=== PATIENT | male | born 1990 | race Caucasian/White ===

== ENCOUNTER 2017-08-04 12:20 | Emergency (ER) | payer OTHER ==
[2017-08-04] MEDS ORDERED: Ketorolac Tromethamine 30 MG/ML VIAL ONE (13:47)
[2017-08-04] MEDS ORDERED: Ondansetron HCl/PF 4 MG/2 ML Vial ONE (13:47)
== END 2017-08-04 13:59 | disposition left against medical advice (07) ==
LOC: SCSER 12:20
DX: R10.11 Right upper quadrant pain (principal); R10.31 Right lower quadrant pain; Z87.891 Personal history of nicotine dependence
CPT/HCPCS: J1885; J2405

== ENCOUNTER 2018-10-31 21:05 | Observation (INO) | payer OTHER, SELFPAY ==
[2018-10-31 21:57] LABS: #Basophils 0.1 thou/uL (0.0-0.2); #Eosinphils 0.2 thou/uL (0.0-0.7); #Lymphocytes 2.8 thou/uL (1.20-3.40); #Monocytes 1.5 thou/uL (0.11-0.59); #Neutrophils 6.7 thou/uL (1.40-6.50); %Basophils 0.8 % (0.0-1.0); %Eosinophils 1.7 % (0.0-10.0); %Lymphocytes 24.4 % (21.0-51.0); %Monocytes 13.5 % (0.0-10.0); %Neutrophils 59.5 % (42.0-75.0); Mean Corpuscular HGB CONC 34.3 g/dL (32.0-36.0); Mean Corpuscular Hemoglobin 30.5 pg (27.0-31.0); Mean Platelet Volume 6.5 fL (7.4-10.4); Platelet Count 369 thou/uL (130-400); RBC Distribution Width 12.6 % (11.5-14.5); Red Blood Cell (RBC) Count 4.92 mill/uL (4.70-6.10); White Blood Cell (WBC) Count 11.3 thou/uL (4.8-10.8)
[2018-10-31 22:18] LABS: ALT (SGPT) 16 U/L (8-55); AST (SGOT) 20 U/L (5-34); Albumin 4.8 g/dL (3.5-5.0); Alkaline Phosphatase 80 U/L (40-150); Anion Gap 12 mmol/L (10-20); BUN (Urea Nitrogen) 26 mg/dL (8.9-20.6); Bilirubin, Total 0.7 mg/dL (0.2-1.2); CK (CPK) 281 U/L (30-200); Calc. Creatinine Clearance 0 mL/min (70-130); Calcium 10.1 mg/dL (7.8-10.44); Carbon Dioxide 29 mmol/L (22-29); Chloride 96 mmol/L (98-107); Estimated GFR-MDRD 51; Globulin 3.1 g/dL (2.4-3.5); Glucose 71 mg/dL (70-105); Potassium 3.3 mmol/L (3.5-5.1); Protein, Total 7.9 g/dL (6.0-8.3); Sodium 134 mmol/L (136-145)
[2018-10-31 22:24] LABS: Phosphorus 4.2 mg/dL (2.3-4.7)
[2018-10-31] MEDS ORDERED: Magnesium 2 GM/50 ML BAG (IN WATER) ONE (22:54)
[2018-10-31 22:56] LABS: Troponin I Less than 0.010 ng/mL (< 0.028)
[2018-11-01] LABS: Bilirubin Negative (Negative); Blood, Urine Negative (Negative); Clarity CLEAR (Clear); Glucose, Urine (Dipstick) Negative (Negative); Leukocyte Negative (Negative); Nitrite Negative (Negative); Protein, Urine (Dipstick) Negative (Neg-Trace); Specific Gravity, Urine 1.011 (1.002-1.036); Urobilinogen 0.2 mg/dL (0.2-1.0)
[2018-11-01] MEDS ORDERED: Acetaminophen 325 MG TAB PO PRN (01:02)
[2018-11-01 01:06] VITALS: BMI 27.3
[2018-11-01 01:58] LABS: Troponin I Less than 0.010 ng/mL (< 0.028)
[2018-11-01 05:08] LABS: #Basophils 0.1 thou/uL (0.0-0.2); #Eosinphils 0.3 thou/uL (0.0-0.7); #Lymphocytes 3.5 thou/uL (1.20-3.40); %Basophils 0.8 % (0.0-1.0); %Eosinophils 2.9 % (0.0-10.0); %Lymphocytes 39.9 % (21.0-51.0); %Monocytes 11.5 % (0.0-10.0); %Neutrophils 44.9 % (42.0-75.0); Hemoglobin 13.4 g/dL (14.0-18.0); Mean Corpuscular HGB CONC 34.9 g/dL (32.0-36.0); Mean Corpuscular Hemoglobin 31.2 pg (27.0-31.0); Mean Corpuscular Volume 89.6 fL (78.0-98.0); Mean Platelet Volume 6.6 fL (7.4-10.4); Platelet Count 286 thou/uL (130-400); RBC Distribution Width 12.6 % (11.5-14.5); Red Blood Cell (RBC) Count 4.28 mill/uL (4.70-6.10); White Blood Cell (WBC) Count 8.8 thou/uL (4.8-10.8)
[2018-11-01 05:18] LABS: Anion Gap 12 mmol/L (10-20); BUN (Urea Nitrogen) 16 mg/dL (8.9-20.6); Calc. Creatinine Clearance 136 mL/min (70-130); Calcium 9.2 mg/dL (7.8-10.44); Carbon Dioxide 27 mmol/L (22-29); Chloride 102 mmol/L (98-107); Estimated GFR-MDRD Greater than 90; Glucose 83 mg/dL (70-105); Potassium 3.6 mmol/L (3.5-5.1); Sodium 137 mmol/L (136-145)
[2018-11-01 05:25] LABS: Troponin I Less than 0.010 ng/mL (< 0.028)
[2018-11-01] MEDS ORDERED: Nicotine 14 MG PATCH TD SCH (13:00)
[2018-11-01 13:10] LABS: Medtox Reader # READER 1
[2018-11-01 13:11] LABS: Amphetamine Detected (NotDetected); Barbiturates Screen Not Detected (NotDetected); Benzodiazepine Screen Not Detected (NotDetected); Cocaine Metabolite Screen Not Detected (NotDetected); Medtox Control Line Valid? VALID (VALID); Methadone Not Detected (NotDetected); Methamphetamine Detected (NotDetected); Opiate Screen Detected (NotDetected); Oxycodone Screen Not Detected (NotDetected); Phencyclidine (PCP) Not Detected (NotDetected); THC/Cannabinoid Screen Detected (NotDetected); Tricyclic Screen Not Detected (NotDetected)
[2018-11-01 14:20] LABS: Acetaminophen Less than 6.0 mcg/mL (10.0-30.0)
[2018-11-01 15:53] VITALS: BP 120/58; TEMP 98.4
--- NOTE | 2018-11-01 18:27 | HP ---
CHIEF COMPLAINT: Presyncope. HISTORY OF PRESENT ILLNESS: Mr. Woodson is a 28-year-old man, who had a presyncopal episode yesterday, witnessed by his . He was walking down the [place] in his house when he suddenly became lightheaded. His states he bumped into the wall and then nearly fell when she was able to catch his fall and lower him to the ground. She states he did not have full loss of consciousness, but was disoriented for a brief moment. He states he was working in the heat and had not drank enough water and feels this occurred due to dehydration. 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 He denies any preceding chest pain or shortness of breath, but states he recalls having severe cramping in his legs and in both hands. He states this has happened once before. He denies any recent alcohol use or drug use. Denies being unwell in recent days. Denies any medical problems, but reports being told by his mother that he had a murmur when he was a child. He does not follow up with any primary care physician or specialist. In the emergency department, he received magnesium replacement and 2 L of IV fluids. He states he has been feeling significantly better and feels that he is back at his normal baseline. He did undergo laboratory studies that had been notable for mild leukocytosis with a white count of 11.3. He was hypokalemic with a potassium of 3.3, and his BUN and creatinine were elevated at 26 and 1.61 respectively with a GFR 51. CK elevated at 281. Troponins were trended and all were negative. Liver function studies were unremarkable. Urinalysis was done, which was positive for trace ketones. REVIEW OF SYSTEMS: He denies having any recent issues with his appetite. No nausea or vomiting. No changes with his weight. Denies having any chest pain, palpitations, or shortness of breath. He is a smoker, but denies any chronic cough and denies any hemoptysis. He smokes one pack of cigarettes per day. Denies having any headaches or dizziness. No further muscle cramping. Denies any abdominal pain. He denies having any recent fevers or chills, but does report chronic issues with occasional sweats. He states he sweats profusely and this has been a longstanding problem. It typically is worse when he is active, nervous, or at night. Denies any weakness. All other review of systems are negative. ALLERGIES: NO KNOWN DRUG ALLERGIES. CURRENT MEDICATIONS: Acetaminophen. PAST MEDICAL HISTORY: 1. Heart murmur as a child. 2. Seizure. PAST SURGICAL HISTORY: Left ACL surgery. SOCIAL HISTORY: The patient reports drinking alcohol socially, but has not had any alcohol in the last several days. Denies any illicit drug use. Reports smoking one pack of cigarettes per day. PHYSICAL EXAMINATION: GENERAL: The patient appears well developed, thin, in no acute distress, resting comfortably. VITAL SIGNS: Temperature 98, pulse 70, respirations 15, O2 saturation 97% on room air, blood pressure 107/59. HEENT: Normocephalic, atraumatic. Pupils are equal, round, and reactive to light. Sclerae without icterus. Oropharynx is clear. NECK: Supple without lymphadenopathy. LUNGS: Clear to auscultation bilaterally without any wheezes, rales, or rhonchi. CARDIAC: Regular rate and rhythm. ABDOMEN: Soft, nontender, nondistended. Normoactive bowel sounds present. No guarding or rigidity. No renal angle tenderness. EXTREMITIES: Without lower leg edema or swelling. No calf tenderness. SKIN: Without rash or jaundice. NEUROLOGIC: Alert and oriented x3. No neuro deficits. IMPRESSION AND PLAN: Mr. Woodson is a 28-year-old man, who is being admitted for management of the following. 1. Presyncope. The patient states he was working in the hot out most of the day and the day prior. He feels this was due to dehydration. He was noted to have an acute kidney injury on admission and he can have had a vasovagal due to hypovolemia. Given the history of a heart murmur, we will check orthostatic blood pressure, and we will continue to monitor. We will check urine drug screen. 2. Acute kidney injury. The patient has received fluids and renal function much improved. GFR now greater than 90 compared to 51 yesterday. 3. Gastrointestinal prophylaxis. 4. Deep venous thrombosis prophylaxis. 5. Full code status. His surrogate decision maker is his , Mary Lou Woodson. 6. The patient's case was discussed with Dr. Cagle, who agrees with plan of care as described above. Job ID: [id number]
== END 2018-11-01 17:45 | disposition home or self-care (01) ==
LOC: ERS 21:05 → 2SW 11-01 00:37
PROVIDERS: ADMIT Internal Medicine; ATTEND Internal Medicine
DX: R55 Syncope and collapse (principal); N17.9 Acute kidney failure, unspecified; F17.210 Nicotine dependence, cigarettes, uncomplicated
CPT/HCPCS: 36415; 36416; 80048; 80053; 80306; 80307; 81003; 82550; 83735; 84100; 84484; 85025; 93005; 93306; 96361; 96365; G0378; J3475

== ENCOUNTER 2019-01-11 00:04 | Inpatient (IN) | payer SELFPAY ==
[2019-01-11 00:40] LABS: Hemoglobin 16.8 g/dL (14.0-18.0); Mean Corpuscular HGB CONC 36.3 g/dL (32.0-36.0); Mean Corpuscular Hemoglobin 31.5 pg (27.0-31.0); Mean Corpuscular Volume 86.9 fL (78.0-98.0); Mean Platelet Volume 6.7 fL (7.4-10.4); Platelet Count 461 thou/uL (130-400); RBC Distribution Width 12.5 % (11.5-14.5); Red Blood Cell (RBC) Count 5.32 mill/uL (4.70-6.10); White Blood Cell (WBC) Count 20.2 thou/uL (4.8-10.8)
[2019-01-11 00:57] LABS: ALT (SGPT) 23 U/L (8-55); AST (SGOT) 41 U/L (5-34); Alkaline Phosphatase 89 U/L (40-150); Anion Gap 24 mmol/L (10-20); BUN (Urea Nitrogen) 41 mg/dL (8.9-20.6); Bilirubin, Total 0.7 mg/dL (0.2-1.2); CK (CPK) 1706 U/L (30-200); Calc. Creatinine Clearance 0 mL/min (70-130); Calcium 11.5 mg/dL (7.8-10.44); Carbon Dioxide 19 mmol/L (22-29); Chloride 84 mmol/L (98-107); Estimated GFR-MDRD 22; Globulin 4.1 g/dL (2.4-3.5); Glucose 114 mg/dL (70-105); Potassium 3.9 mmol/L (3.5-5.1); Protein, Total 10.1 g/dL (6.0-8.3); Sodium 123 mmol/L (136-145)
[2019-01-11 00:58] LABS: Lymphocytes 8 % (21-51); MDiff Complete? YES; Monocytes 4 % (0-10); Neutrophil 88 % (42-75); Platelet Morphology Comment Appears Increased; RBC Morphology Normal
[2019-01-11] MEDS ORDERED: Ondansetron PF 4 MG/2 ML Vial ONE (01:49)
[2019-01-11] MEDS ORDERED: Senokot S 8.6-50 MG TAB PO PRN (03:13)
[2019-01-11] MEDS ORDERED: Bisacodyl 5 MG TAB PO PRN (03:13)
[2019-01-11] MEDS: Sodium Chloride 0.9% 1,000 ML IV SCH ×3 (05:05→19:20)
[2019-01-11 05:46] LABS: Bilirubin Negative (Negative); Blood, Urine 1+ (Negative); Clarity Turbid (Clear); Glucose, Urine (Dipstick) Normal (Negative); Leukocyte Negative Leu/uL (Negative); Mucous/LPF Rare LPF (<2+); Nitrite Negative (Negative); Protein, Urine (Dipstick) 10 mg/dL (Neg-Trace); RBC/HPF 0-3 HPF (0-3); Squamous Epithelial 0-3 HPF (0-3); Urobilinogen Normal mg/dL (Less than 2); Yeast-Budding 1+ HPF (None Seen)
[2019-01-11 05:47] LABS: Bacteria/HPF 1+ HPF (None Seen)
[2019-01-11 05:55] LABS: Calcium Oxalate Crystals 3+ HPF (None Seen)
--- NOTE | 2019-01-11 06:06 | HP ---
CHIEF COMPLAINT: Generalized body aches and pain. HISTORY OF PRESENT ILLNESS: The patient is a 28-year-old male, who stated that he works outside in the sun and stated that for the past couple of days, came home, felt very ill, so he started drinking lots and lots of water. At this time, he had significant amount of nausea and vomiting. He stated that he felt cramping all over. He could not keep any fluids down. He denies any diarrhea or any significant abdominal pain; however, felt that he has cramping all over. The patient states that he feels that he is dehydrated and that is why he came into the ER for further evaluation. He felt warm, however, notes no documented fevers. PAST MEDICAL HISTORY: The patient's past medical history is of the following; 1. He has had a heart murmur as a child. 2. He has a history of seizure. PAST SURGICAL HISTORY: He has had a left ACL surgery. SOCIAL HISTORY: He denies drinking, any alcohol, any drug use, or any smoking history. He is a full code and lives alone. REVIEW OF SYSTEMS: All negative except for the ones mentioned above in the HPI. ALLERGIES: HE HAS NO KNOWN DRUG ALLERGIES. MEDICATIONS: He states that he has been taking few ibuprofen here and there. PHYSICAL EXAMINATION: VITAL SIGNS: As of the following; temperature of 97.8, blood pressure 135/92, pulse 97, respiratory rate 19, 99% on room air. GENERAL: He is awake, alert, and oriented x3. Does not appear in distress. HEENT: Normocephalic, atraumatic. No lymphadenopathy noted. Pupils are equal and reactive to light. CV: S1 and S2 present. No murmurs heard on my auscultation. LUNGS: Clear to auscultation. No rhonchi or wheezes noted. ABDOMEN: Bowel sounds are present x2. The patient has pain upon palpation to all 4 quadrants. EXTREMITIES: No edema. Pedal pulses are present x2. SKIN: He has some tattooing all over. NEUROVASCULAR: No focal deficits noted. LABORATORY DATA: Laboratory results, WBCs of 20.2, hemoglobin of 16.8, hematocrit of 46.2, and platelets of 461. Chemistry, sodium of 123, potassium of 3.9, BUN of 41, creatinine of 3.38. His calcium is 11.5. CK is 1706. AST is 41. Lipase is 14. CT of abdomen and pelvis has been ordered. The results are pending. ASSESSMENT AND PLAN: The patient is a 28-year-old male, who presents to the hospital with generalized body aches and pains and also abdominal cramping. 1. Acute kidney injury. I will start the patient on some hydration. Also I will order a CT of abdomen and pelvis, which the results are pending to rule out any obstruction. The patient appears to be clinically very severely dehydrated. We will continue to monitor. 2. He has hyponatremia, most likely secondary to dehydration. He also has elevation of calcium. We will continue IV hydration and continue to monitor. 3. Leukocytosis. I believe this is reactive. He does not have any diarrhea and only had nausea and vomiting. We will continue to monitor without any antibiotics. Of note, his toxicology back in October was positive for methamphetamines and marijuana; however, the patient states that he has not taken marijuana for the past 3 weeks. I will check a UDS on this patient. 4. Deep venous thrombosis prophylaxis. We will put the patient on some SCDs. Job ID: [id number]
[2019-01-11 06:09] LABS: #Lymphocytes 3.1 thou/uL (1.20-3.40); #Monocytes 1.1 thou/uL (0.11-0.59); #Neutrophils 10.3 thou/uL (1.40-6.50); %Eosinophils 0.2 % (0.0-10.0); %Lymphocytes 21.1 % (21.0-51.0); %Monocytes 7.7 % (0.0-10.0); %Neutrophils 70.9 % (42.0-75.0); Hemoglobin 14.6 g/dL (14.0-18.0); Mean Corpuscular HGB CONC 35.2 g/dL (32.0-36.0); Mean Corpuscular Hemoglobin 31.6 pg (27.0-31.0); Mean Corpuscular Volume 89.8 fL (78.0-98.0); Mean Platelet Volume 6.5 fL (7.4-10.4); Platelet Count 370 thou/uL (130-400); RBC Distribution Width 12.4 % (11.5-14.5); Red Blood Cell (RBC) Count 4.61 mill/uL (4.70-6.10); White Blood Cell (WBC) Count 14.5 thou/uL (4.8-10.8)
[2019-01-11 06:26] LABS: Anion Gap 15 mmol/L (10-20); BUN (Urea Nitrogen) 35 mg/dL (8.9-20.6); Calc. Creatinine Clearance 0 mL/min (70-130); Calcium 9.7 mg/dL (7.8-10.44); Carbon Dioxide 25 mmol/L (22-29); Chloride 93 mmol/L (98-107); Estimated GFR-MDRD 32; Glucose 105 mg/dL (70-105); Potassium 3.8 mmol/L (3.5-5.1); Sodium 129 mmol/L (136-145)
--- NOTE | 2019-01-11 07:35 | CT ---
PRELIMINARY REPORT/[facility]/EMERGENCY AFTER HOURS PROCEDURE: EXAM: CT Abdomen and Pelvis Without Contrast EXAM DATE/TIME: 01/11/2019 2:14 AM CLINICAL HISTORY: 28 years old, male; Abdominal pain; Generalized; Patient HX: 28 y/o m presents to ED C/O x 2 days of abd cramping and vomiting. PT reports approx 5 episodes of emesis. He states he is concerned he is dehydrated TECHNIQUE: Imaging protocol: Axial computed tomography images of the abdomen and pelvis without contrast. COMPARISON: No relevant prior studies available. FINDINGS: Lungs: The visualized portions of the lung bases are normal. Liver: The liver is within normal limits for this noncontrast study. Gallbladder and bile ducts: The gallbladder is normal. There is no evidence of biliary ductal dilatio n. Pancreas: The pancreas appears normal. No ductal dilatation. Spleen: The spleen is normal. Adrenals: The adrenal glands are normal. Kidneys and ureters: The kidneys appear normal. No hydronephrosis. Stomach and bowel: The stomach is normal. The colon is normal. Appendix: A normal appendix is identified. Intraperitoneal space: Normal. No free air. No significant fluid collection. Vasculature: Normal. No abdominal aortic aneurysm. Lymph nodes: Normal. No enlarged lymph nodes. Bladder: The bladder is normal. Reproductive: The prostate gland and seminal vesicles are normal. Bones/joints: No acute fracture. No dislocation. Soft tissues: Unremarkable. IMPRESSION: No acute abdominal pelvic pathology. Thank you for allowing us to participate in the care of your patient. Dictated and Authenticated by: Faustino Riley MD 01/11/2019 3:40 AM Central Time ([place] & [place]) FINAL REPORT EMERGENCY AFTER HOURS CT ABDOMEN AND PELVIS WITHOUT CONTRAST: FINDINGS/IMPRESSION: I agree with the preliminary report given by Alberto. Transcribed Date/Time: 01/11/2019 7:47 AM
[2019-01-11] MEDS: Famotidine/PF 20 mg/2ml Vial SLOW IVP SCH (09:28)
[2019-01-11 09:43] LABS: Medtox Reader # READER 1
[2019-01-11 09:44] LABS: Amphetamine Not Detected (NotDetected); Barbiturates Screen Not Detected (NotDetected); Benzodiazepine Screen Not Detected (NotDetected); Cocaine Metabolite Screen Not Detected (NotDetected); Medtox Control Line Valid? VALID (VALID); Methadone Not Detected (NotDetected); Methamphetamine Not Detected (NotDetected); Opiate Screen Not Detected (NotDetected); Oxycodone Screen Not Detected (NotDetected); Phencyclidine (PCP) Not Detected (NotDetected); THC/Cannabinoid Screen Detected (NotDetected); Tricyclic Screen Not Detected (NotDetected)
[2019-01-11] MEDS: Acetaminophen 325 MG TAB PO PRN ×2 (09:54→20:00)
[2019-01-11 11:27] VITALS: BMI 27.3
[2019-01-11 13:20] LABS: Anion Gap 13 mmol/L (10-20); BUN (Urea Nitrogen) 29 mg/dL (8.9-20.6); Calc. Creatinine Clearance 82 mL/min (70-130); Carbon Dioxide 28 mmol/L (22-29); Chloride 94 mmol/L (98-107); Estimated GFR-MDRD 54; Glucose 99 mg/dL (70-105); Potassium 4.6 mmol/L (3.5-5.1); Sodium 130 mmol/L (136-145)
[2019-01-12] MEDS: Sodium Chloride 0.9% 1,000 ML IV SCH ×2 (00:06→05:11)
[2019-01-12] MEDS: Famotidine/PF 20 mg/2ml Vial SLOW IVP SCH (08:56)
[2019-01-12 11:12] LABS: #Basophils 0.1 thou/uL (0.0-0.2); #Eosinphils 0.2 thou/uL (0.0-0.7); #Lymphocytes 2.8 thou/uL (1.20-3.40); #Monocytes 0.8 thou/uL (0.11-0.59); #Neutrophils 4.9 thou/uL (1.40-6.50); %Basophils 0.6 % (0.0-1.0); %Eosinophils 1.8 % (0.0-10.0); %Lymphocytes 31.7 % (21.0-51.0); %Monocytes 9.2 % (0.0-10.0); %Neutrophils 56.7 % (42.0-75.0); Hemoglobin 13.9 g/dL (14.0-18.0); Mean Corpuscular HGB CONC 34.8 g/dL (32.0-36.0); Mean Corpuscular Hemoglobin 31.1 pg (27.0-31.0); Mean Corpuscular Volume 89.5 fL (78.0-98.0); Mean Platelet Volume 6.8 fL (7.4-10.4); Platelet Count 343 thou/uL (130-400); RBC Distribution Width 12.2 % (11.5-14.5); Red Blood Cell (RBC) Count 4.47 mill/uL (4.70-6.10); White Blood Cell (WBC) Count 8.7 thou/uL (4.8-10.8)
[2019-01-12 11:41] LABS: ALT (SGPT) 24 U/L (8-55); AST (SGOT) 44 U/L (5-34); Albumin 4.4 g/dL (3.5-5.0); Alkaline Phosphatase 63 U/L (40-150); Anion Gap 12 mmol/L (10-20); BUN (Urea Nitrogen) 14 mg/dL (8.9-20.6); Bilirubin, Total 0.8 mg/dL (0.2-1.2); CK (CPK) 1318 U/L (30-200); Calc. Creatinine Clearance 159 mL/min (70-130); Calcium 9.5 mg/dL (7.8-10.44); Carbon Dioxide 25 mmol/L (22-29); Chloride 103 mmol/L (98-107); Estimated GFR-MDRD Greater than 90; Globulin 2.9 g/dL (2.4-3.5); Glucose 95 mg/dL (70-105); Potassium 4.5 mmol/L (3.5-5.1); Protein, Total 7.3 g/dL (6.0-8.3); Sodium 135 mmol/L (136-145)
[2019-01-12 12:50] VITALS: BP 132/52; TEMP 98.2
--- NOTE | 2019-01-12 15:31 | DIS ---
DATE OF ADMISSION: 01/11/2019 DATE OF DISCHARGE: 01/12/2019 PRIMARY CARE PROVIDER: None. DISCHARGE DIAGNOSES: 1. Acute kidney injury. 2. Rhabdomyolysis. 3. Hyponatremia. 4. Dehydration. 5. Hypercalcemia. CONDITION OF PATIENT ON THE DAY OF DISCHARGE: Stable. I assessed Mr. Woodson on the day of discharge. He denies any chest pain or shortness of breath. Vital signs are stable. S1 and S2 are heard, regular. Lungs are clear to auscultation bilaterally. DISCHARGE MEDICATIONS: None. HOSPITAL COURSE: Mr. Woodson is a pleasant 28-year-old gentleman, who was admitted to [facility] on January 11, 2019, for acute kidney injury and rhabdomyolysis. He was also hyponatremic. He also had elevated calcium level. He was treated with intravenous fluids. He improved clinically. On the day of discharge, he has sodium 135, potassium 4.5, creatinine 0.80, creatine kinase 1318, white count 8700, hemoglobin 13.9, and platelet count 343,000 Many thanks for allowing me to participate in your patient's care. Please feel free to contact me with any questions or concerns. FOLLOWUP APPOINTMENTS: The patient has been advised to follow up with primary care provider in 3 days' time and have his basic metabolic panel checked. DISCHARGE DESTINATION: Home. TIME SPENT: Total amount of time spent coordinating this discharge: 33 minutes. Job ID: [id number]
== END 2019-01-12 14:56 | disposition home or self-care (01) | DRG 683 ==
LOC: ERS 00:04 → ERHOLD 02:50 → SURG A 07:49
PROVIDERS: ADMIT Internal Medicine; ATTEND Internal Medicine
DX: N17.9 Acute kidney failure, unspecified (principal); E87.1 Hypo-osmolality and hyponatremia; M62.82 Rhabdomyolysis; E86.0 Dehydration; E83.52 Hypercalcemia
CPT/HCPCS: 36415; 74176; 80053; 80306; 81003; 81015; 82550; 83690; 85025; 96361; 96374; J2405; S0028

== ENCOUNTER 2019-02-18 23:35 | Inpatient (IN) | payer SELFPAY ==
[2019-02-18] MEDS ORDERED: Ondansetron PF 4 MG/2 ML Vial ONE (23:52)
[2019-02-19 00:01] LABS: #Basophils 0.1 thou/uL (0.0-0.2); #Lymphocytes 2.3 thou/uL (1.20-3.40); #Monocytes 0.8 thou/uL (0.11-0.59); #Neutrophils 16.2 thou/uL (1.40-6.50); %Basophils 0.4 % (0.0-1.0); %Eosinophils 0.1 % (0.0-10.0); %Lymphocytes 11.8 % (21.0-51.0); %Neutrophils 83.8 % (42.0-75.0); Hemoglobin 18.2 g/dL (14.0-18.0); Mean Corpuscular HGB CONC 35.6 g/dL (32.0-36.0); Mean Corpuscular Hemoglobin 31.2 pg (27.0-31.0); Mean Corpuscular Volume 87.8 fL (78.0-98.0); Mean Platelet Volume 6.8 fL (7.4-10.4); Platelet Count 512 thou/uL (130-400); RBC Distribution Width 12.8 % (11.5-14.5); Red Blood Cell (RBC) Count 5.82 mill/uL (4.70-6.10); White Blood Cell (WBC) Count 19.3 thou/uL (4.8-10.8)
[2019-02-19 00:24] LABS: ALT (SGPT) 19 U/L (8-55); AST (SGOT) 26 U/L (5-34); Alkaline Phosphatase 100 U/L (40-150); Anion Gap 30 mmol/L (10-20); BUN (Urea Nitrogen) 34 mg/dL (8.9-20.6); Bilirubin, Total 0.6 mg/dL (0.2-1.2); CK (CPK) 423 U/L (30-200); Calc. Creatinine Clearance 0 mL/min (70-130); Carbon Dioxide 16 mmol/L (22-29); Chloride 86 mmol/L (98-107); Estimated GFR-MDRD 17; Glucose 125 mg/dL (70-105); Lipase 7 U/L (8-78); Potassium 4.5 mmol/L (3.5-5.1); Protein, Total 10.9 g/dL (6.0-8.3); Sodium 127 mmol/L (136-145)
[2019-02-19 00:26] LABS: Albumin Greater than 6.2 g/dL (3.5-5.0); Calcium 12.6 mg/dL (7.8-10.44)
[2019-02-19] MEDS ORDERED: Morphine 4 MG/ML VIAL ONE (00:52)
[2019-02-19 06:38] VITALS: BMI 27.6
[2019-02-19] MEDS ORDERED: Ondansetron PF 4 MG/2 ML Vial IVP PRN ×2 (06:41→09:21)
[2019-02-19] MEDS ORDERED: Sodium Chloride 0.9% 1,000 ML IV SCH ×2 (06:41→09:30)
[2019-02-19] MEDS ORDERED: Ondansetron ODT 4 MG TAB SL PRN (06:41)
[2019-02-19] MEDS ORDERED: traMADol HCl 50 MG TAB PO PRN (07:42)
[2019-02-19] MEDS: traMADol HCl 50 MG TAB PO PRN ×2 (08:44→15:56)
[2019-02-19] MEDS ORDERED: Acetaminophen 650 MG Suppository PR PRN (09:21)
[2019-02-19] MEDS ORDERED: Calcium Carbonate 500 MG ChewTAB PO PRN (09:21)
[2019-02-19] MEDS ORDERED: Acetaminophen 325 MG TAB PO PRN (09:21)
--- NOTE | 2019-02-19 11:29 | HP ---
PRIMARY CARE PROVIDER: None. CHIEF COMPLAINT: Body aches. HISTORY OF PRESENT ILLNESS: Mr. Woodson is a pleasant 28-year-old gentleman, who was seen at [facility] on February 19, 2019. He reports working outdoors 2 days ago. It was a very hot day. He reports having nausea and vomiting as well as muscle cramps. He tried to drink some water. He reports that he could not keep the water down because of vomiting. He denies any diarrhea. He reports having severe muscle cramps in his extremities. He denies any chest pain or shortness of breath. He denies any fevers or chills. He came to the emergency room because of muscle cramps, nausea, and vomiting. REVIEW OF SYSTEMS: All systems were reviewed and found to be negative. PAST MEDICAL HISTORY: Seizure, heart murmur as a child, acute kidney injury in the past, and rhabdomyolysis in the past. PAST SURGICAL HISTORY: Left ACL surgery. SOCIAL HISTORY: The patient smokes 1 pack of cigarettes a day. He denies any alcohol use or recreational drug use. FAMILY HISTORY: Pacemaker in his mother. ALLERGIES: NO KNOWN DRUG ALLERGIES. CURRENT MEDICATIONS: None. PHYSICAL EXAMINATION: GENERAL: On examination, Mr. Woodson is awake and alert, not in acute distress. VITAL SIGNS: Blood pressure is 127/79, pulse 88, respiratory rate 18, and oxygen saturation 95% on room air. He is afebrile. EYES: No scleral icterus. No conjunctival pallor. ENT: Dry mucosal membranes. No oropharyngeal erythema or exudates. NECK: Supple and nontender. Trachea is midline. RESPIRATORY: Accessory muscles of breathing are not active. Chest wall movements are symmetric bilaterally. Lungs are clear to auscultation without wheeze, rhonchi, or crepitations. CARDIOVASCULAR: S1 and S2 are heard, regular. Peripheral pulses are palpable. No carotid bruit. No pericardial rub. ABDOMEN: Soft and nontender. Bowel sounds are heard. No hepatomegaly. No splenomegaly. NEUROLOGIC: Cranial nerves 2 through 12 intact. Deep tendon reflexes 2+. MUSCULOSKELETAL: Power is 5/5 in all 4 extremities. SKIN: No rashes or subcutaneous nodules. LYMPHATIC: No cervical lymphadenopathy. PSYCHIATRIC: Normal mood. Normal affect. The patient is oriented to person, place, and time. LABORATORY DATA: Mr. Woodson's labs and investigations were reviewed. A 12-lead EKG shows normal sinus rhythm, no ST changes to suggest an acute coronary syndrome. He has leukocytosis with 19,300 white cells, of which 83.8% are neutrophils. Hemoglobin is elevated at 18.2. Platelet count is elevated at 512,000. He has hyponatremia with sodium 127, normal potassium, decreased carbon dioxide of 16, elevated anion gap of 30, elevated blood urea nitrogen of 34, elevated creatinine of 4.22, elevated calcium of 12.6, normal total bilirubin, normal AST, normal ALT, normal alkaline phosphatase, elevated CK of 423, and elevated serum total protein of 10.9. ASSESSMENT AND PLAN: Mr. Woodson is a pleasant 28-year-old gentleman, who was seen at [facility] on February 19, 2019. His problem list includes: 1. Acute kidney injury: Mr. Woodson is presenting with acute kidney injury, most likely secondary to rhabdomyolysis and dehydration. He will be admitted to the hospital for further management including treatment with intravenous fluids. 2. Hyponatremia: Asymptomatic at this time. We will provide normal saline and recheck sodium level. 3. Hypercalcemia: We will provide intravenous hydration and recheck calcium level at 1600 hours today. 4. Anion gap metabolic acidosis: Likely secondary to uremia. We will recheck labs after providing intravenous hydration. 5. Tobacco abuse: Counseled the patient regarding tobacco cessation. We will start nicotine replacement therapy. LEVEL OF RISK: Moderate. LEVEL OF COMPLEXITY: Moderate. Job ID: [id number]
[2019-02-19] MEDS: Sodium Bicarbonate 50 MEQ in Dextrose 5 %-0.45 % NaCl 1,000 ML IV SCH ×3 (12:38→19:51)
[2019-02-19] MEDS: Nicotine 21 MG PATCH TD SCH (12:38)
[2019-02-19 13:58] LABS: Anion Gap 14 mmol/L (10-20); BUN (Urea Nitrogen) 30 mg/dL (8.9-20.6); Calc. Creatinine Clearance 92 mL/min (70-130); Calcium 10.2 mg/dL (7.8-10.44); Carbon Dioxide 29 mmol/L (22-29); Chloride 92 mmol/L (98-107); Estimated GFR-MDRD 65; Glucose 108 mg/dL (70-105); Potassium 3.5 mmol/L (3.5-5.1); Sodium 131 mmol/L (136-145)
[2019-02-19] MEDS: Heparin 5,000 UNITS/ML VIAL SC SCH ×2 (15:55→21:53)
[2019-02-19 16:47] LABS: Anion Gap 14 mmol/L (10-20); BUN (Urea Nitrogen) 27 mg/dL (8.9-20.6); Calc. Creatinine Clearance 114 mL/min (70-130); Calcium 10.1 mg/dL (7.8-10.44); Carbon Dioxide 30 mmol/L (22-29); Chloride 94 mmol/L (98-107); Estimated GFR-MDRD 83; Glucose 93 mg/dL (70-105); Potassium 3.7 mmol/L (3.5-5.1); Sodium 134 mmol/L (136-145)
[2019-02-19 20:34] LABS: Bilirubin Negative (Negative); Blood, Urine Negative (Negative); Clarity Clear (Clear); Glucose, Urine (Dipstick) Normal (Negative); Leukocyte Negative Leu/uL (Negative); Mucous/LPF Rare LPF (<2+); Nitrite Negative (Negative); Protein, Urine (Dipstick) Negative (Neg-Trace); RBC/HPF 0-3 HPF (0-3); Squamous Epithelial 0-3 HPF (0-3); Urobilinogen Normal mg/dL (Less than 2); WBC/HPF 0-3 HPF (0-3)
[2019-02-19 20:55] LABS: Bacteria/HPF Rare-Few HPF (None Seen)
[2019-02-19 22:30] LABS: Anion Gap 12 mmol/L (10-20); BUN (Urea Nitrogen) 25 mg/dL (8.9-20.6); Calc. Creatinine Clearance 125 mL/min (70-130); Calcium 9.8 mg/dL (7.8-10.44); Carbon Dioxide 32 mmol/L (22-29); Chloride 94 mmol/L (98-107); Estimated GFR-MDRD Greater than 90; Glucose 97 mg/dL (70-105); Potassium 4.2 mmol/L (3.5-5.1); Sodium 134 mmol/L (136-145)
--- NOTE | 2019-02-19 23:58 | CON ---
DATE OF CONSULTATION: HISTORY OF PRESENT ILLNESS: Mr. Woodson is a 28-year-old white male, who came in with diffuse myalgia. He was found to be in acute kidney injury. We are being consulted for his acute kidney injury. He is currently receiving empiric volume repletion. REVIEW OF SYSTEMS: Positive for diffuse myalgia. No nausea. No vomiting. Positive for cramping. No diarrhea. No constipation. No headache. Appetite is fair. Energy level is fair. No diplopia. No syncopal episode. No productive cough. No fever or chills. MEDICATIONS: Home medications, none. Current medications; 1. D5 water with sodium bicarbonate to run at 200 mL an hour. 2. Heparin 5000 units subcu t.i.d. 3. Nicoderm patch daily. 4. Zofran p.r.n. PAST MEDICAL HISTORY: Status post acute kidney injury secondary to volume depletion. PAST SURGICAL HISTORY: Status post left knee surgery for torn ACL. SOCIAL HISTORY: The patient lives in [place], but originally from [place]. , 2 children. No IV drug abuse. Smokes one pack per day for the last 15 years. No alcohol. Denies any current IV drug use. Works as an master electrician. No blood transfusion. Education, GED. ALLERGIES: NONE. TRAUMA: Status post left knee injury. IMMUNIZATION: Unknown. HOSPITALIZATIONS: Please see past medical history. FAMILY HISTORY: No family history of ESRD. PHYSICAL EXAMINATION: VITAL SIGNS: Blood pressure 117/67, heart rate 77, respiratory rate 16, temperature 98.3, and pulse ox 98%. GENERAL: Awake, alert, comfortable, not in distress. SKIN: Adequate turgor. HEENT: He has pinkish conjunctivae. Anicteric sclerae. NECK: No neck mass. No carotid bruits. No JVD. CHEST: No deformities. LUNGS: Clear breath sounds. No wheezing. No crackles. HEART: Normal sinus rhythm. No murmur. No gallops. No rubs. ABDOMEN: Globular, soft, nontender. No masses. EXTREMITIES: No edema. No deformities. NEUROLOGICAL: Moving all extremities. No tremors. No asterixis. No ataxia. LABORATORY DATA: Laboratories of February 18, 2019; white count 19.3, hemoglobin 18.2. On February 18, 2019, sodium 127, potassium 4.5, chloride 86, carbon dioxide 16, BUN 34, creatinine 4.22, calcium 12.6, AST 26, ALT 19. On February 19, 2019 at 1618 hours, sodium 134, potassium 3.7, chloride 94, carbon dioxide 30, BUN 27, creatinine 1.06. GFR is 83 mL/minute. Calcium 10.1. ASSESSMENT AND PLAN: 1. Acute kidney injury-most likely hemodynamically-mediated renal dysfunction. Much improved with IV hydration. Agree with current management. Continue IV fluids. Please note, renal function is now normal. 2. Hypercalcemia, resolved. 3. Leukocytosis-this could be a reflection of dehydration with this patient. Recheck CBC in a.m. 4. Overall agree with current management. Job ID: [id number]
[2019-02-20] MEDS: Sodium Bicarbonate 50 MEQ in Dextrose 5 %-0.45 % NaCl 1,000 ML IV SCH ×3 (01:53→12:30)
[2019-02-20 05:52] LABS: #Basophils 0.1 thou/uL (0.0-0.2); #Eosinphils 0.2 thou/uL (0.0-0.7); #Lymphocytes 2.9 thou/uL (1.20-3.40); %Basophils 0.6 % (0.0-1.0); %Eosinophils 1.9 % (0.0-10.0); %Lymphocytes 31.5 % (21.0-51.0); %Monocytes 10.7 % (0.0-10.0); %Neutrophils 55.3 % (42.0-75.0); Hemoglobin 13.1 g/dL (14.0-18.0); Mean Corpuscular HGB CONC 35.5 g/dL (32.0-36.0); Mean Corpuscular Hemoglobin 32.7 pg (27.0-31.0); Mean Corpuscular Volume 92.2 fL (78.0-98.0); Mean Platelet Volume 6.8 fL (7.4-10.4); Platelet Count 273 thou/uL (130-400); RBC Distribution Width 12.6 % (11.5-14.5); Red Blood Cell (RBC) Count 3.99 mill/uL (4.70-6.10); White Blood Cell (WBC) Count 9.1 thou/uL (4.8-10.8)
[2019-02-20 06:18] LABS: Anion Gap 8 mmol/L (10-20); BUN (Urea Nitrogen) 17 mg/dL (8.9-20.6); CK (CPK) 445 U/L (30-200); Calc. Creatinine Clearance 178 mL/min (70-130); Calcium 8.9 mg/dL (7.8-10.44); Carbon Dioxide 31 mmol/L (22-29); Chloride 100 mmol/L (98-107); Estimated GFR-MDRD Greater than 90; Glucose 103 mg/dL (70-105); Potassium 3.8 mmol/L (3.5-5.1); Sodium 135 mmol/L (136-145)
[2019-02-20 08:47] VITALS: BP 147/73; TEMP 98.5
[2019-02-20] MEDS: Heparin 5,000 UNITS/ML VIAL SC SCH ×2 (08:47→15:19)
[2019-02-20] MEDS: Nicotine 21 MG PATCH TD SCH (08:48)
--- NOTE | 2019-02-20 16:23 | DIS ---
DATE OF ADMISSION: 02/19/2019 DATE OF DISCHARGE: 02/20/2019 PRIMARY CARE PROVIDER: Unknown. DISCHARGE DIAGNOSES: 1. Acute kidney injury. 2. Hypercalcemia. 3. Rhabdomyolysis. 4. Hyponatremia. 5. Dehydration. CONDITION OF PATIENT ON THE DAY OF DISCHARGE: Stable. I assessed Mr. Woodson on the day of discharge. He denies any chest pain or shortness of breath. Vital signs are stable. S1 and S2 are heard, regular. Lungs are clear to auscultation bilaterally. DISCHARGE MEDICATIONS: Nicotine 21 mg patch daily. CONSULTATIONS DURING THIS HOSPITALIZATION: Nephrology, Dr. Kiser. HOSPITAL COURSE: Mr. Woodson is a pleasant 28-year-old gentleman, who was admitted to [facility] on February 19, 2019, for acute kidney injury secondary to rhabdomyolysis. Please refer to my history and physical note dated February 19, 2019, for further details. He was seen by Nephrology Service. He improved with intravenous hydration. Acute kidney injury and hypercalcemia resolved. He is being discharged home in a stable condition. At the time of this dictation, his GORDON test was pending. He is advised to follow up with primary care provider for result of the GORDON test. He has been advised to stop tobacco use and to maintain good oral hydration. FOLLOWUP APPOINTMENTS: The patient is advised to follow up with primary care provider for results of GORDON test. Many thanks for allowing me to participate in Mr. Woodson's care. Please feel free to contact me with any questions or concerns. DISCHARGE DESTINATION: Home. TIME SPENT: Total amount of time spent coordinating this discharge: 32 minutes. Job ID: [id number]
[2019-02-24 16:06] LABS: ANA Symphony (Qualitative) Negative (Negative); ANA Symphony (Quantitative) 0.1 Ratio (< 0.7 Negative); dsDNA IgG Antibody 0.7 IU/mL (<10 Negative)
== END 2019-02-20 15:35 | disposition home or self-care (01) | DRG 683 ==
LOC: ERS 23:35 → ERHOLD 02-19 02:20 → OBSVTOIN 02-19 02:20 → 2NO 02-19 06:22
PROVIDERS: ADMIT Hospitalist; ATTEND Hospitalist
DX: N17.9 Acute kidney failure, unspecified (principal); M62.82 Rhabdomyolysis; E87.1 Hypo-osmolality and hyponatremia; E87.2 Acidosis; E83.52 Hypercalcemia; E86.0 Dehydration; F17.210 Nicotine dependence, cigarettes, uncomplicated; R56.9 Unspecified convulsions; D72.829 Elevated white blood cell count, unspecified
CPT/HCPCS: 36415; 80048; 80053; 81001; 82550; 83690; 85025; 86038; 86225; 90471; 90732; 93005; 96361; 96374; 96375; G0009; J1644; J2270; J2405; J7042